=== PATIENT | female | born 1965 | race Caucasian/White ===

== ENCOUNTER 2019-02-13 09:55 | Emergency (ER) | payer OTHER, MEDICAID ==
[~2019-02-13] VITALS: Ht 154.9 cm; Wt 83.9 kg
[2019-02-13 10:10] VITALS: BP 122/61
--- NOTE | 2019-02-13 10:39 | NUR ---
PATIENT AMBULATED TO BED8.
--- NOTE | 2019-02-13 10:44 | NUR ---
BROUGHT IN BY GEOSPATIAL SYSTEMS INTEGRATOR FROM [facility] C/O RIGHT BUTTOCK PAIN S/P MECHANICAL FALL YESTERDAY SHE WAS ATTEMPTING TO GET INTO VAN AND MISSED HER STEP. NO ERYTHEMA, EDEMA, OR DEFORMATY NOTICED. 9/10 PAIN TO PALPATION. ONE 2X2.3CM ERYTHEMOUS LUMP WITH SCAR NOTICED ON PT'S RIGHT KNEE. PT DENIES IT IS DUE TO THE FALL. PATIENT STATES PAIN OF 9/10 AT THIS TIME; VSS; PATIENT POSITIONED FOR COMFORT; HOB ELEVATED; BEDRAILS UP X2; BED DOWN. ER MD MADE AWARE OF PT STATUS.
--- NOTE | 2019-02-13 12:15 | NUR ---
PT IS RESTING IN BED WITH EYES OPENED.
[2019-02-13] MEDS ORDERED: IBUPROFEN 600 MG TAB PO ONE (12:25)
--- NOTE | 2019-02-13 13:53 | NUR ---
PT IS RESTING IN BED WITH EYES OPENED. VSS.
[2019-02-13 14:31] VITALS: BP 115/76
--- NOTE | 2019-02-13 14:31 | NUR ---
Patient discharged with v/s stable. Written and verbal after care instructions given and explained. Patient verbalized understanding. Ambulatory with steady gait. All questions addressed prior to discharge. Advised to follow up with PMD.
== END 2019-02-13 14:31 | disposition home or self-care (01) ==
LOC: MED 09:55
DX: M25.551 Pain in right hip (principal); J45.909 Unspecified asthma, uncomplicated
CPT/HCPCS: 72110; 99283

== ENCOUNTER 2019-02-17 20:26 | Emergency (ER) | payer OTHER, MEDICAID ==
[~2019-02-17] VITALS: Ht 170.2 cm; Wt 72.6 kg
[2019-02-17 20:31] VITALS: BP 122/86
[2019-02-17] MEDS ORDERED: KETOROLAC 30 MG/ML VIAL IM ONE (21:15)
[2019-02-17 22:50] VITALS: BP 122/86
== END 2019-02-17 22:50 | disposition home or self-care (01) ==
LOC: MED 20:26
DX: S76.011A Strain of muscle, fascia and tendon of right hip, initial encounter (principal); M54.5 Low back pain; J45.909 Unspecified asthma, uncomplicated; W01.0XXA Fall on same level from slipping, tripping and stumbling without subsequent striking against object, initial encounter; Y93.89 Activity, other specified; Y92.008 Other place in unspecified non-institutional (private) residence as the place of occurrence of the external cause; Y99.8 Other external cause status
CPT/HCPCS: 73502; 96372; 99283; J1885; Q0092

== ENCOUNTER 2019-02-24 11:12 | Emergency (ER) | payer OTHER, MEDICAID ==
[~2019-02-24] VITALS: Ht 154.9 cm; Wt 83.9 kg
[2019-02-24 11:17] VITALS: BP 116/76
--- NOTE | 2019-02-24 11:47 | NUR ---
NIECY Nowak C/O LOWER BACK PAIN 01/28. PER EMS, PT FELL OUT OF A VAN AND LANDED IN A SITTING POSITION ON 02/20/19, AND WAS EVALUATED AFTER BUT FOUND TO HAVE NO FRACTURE. PT STILL C/O LOWER BACK PAIN SO [facility] SENT HER OVER. VSS. ALERT AND AWAKE. BED IS DOWN, LOCKED, BED RAIL X1, ERMD TO SEE PT. HX: SCHIZOPHRENIA, DEPRESSION, ANXIETY, ARTHRITIS RX: MOTRIN, ZOCOR, SEROQUEL, ZOLOFT
--- NOTE | 2019-02-24 12:30 | NUR ---
RR EVEN AND UNLABORED. PT ALERT AND AWAKE. PAIN 01/28. LAYING IN BED. POSITIONED FOR COMFORT
[2019-02-24] MEDS ORDERED: HYDROcodone/APAP 5/325 MG 1 TAB TAB PO ONE (13:15)
--- NOTE | 2019-02-24 13:15 | NUR ---
AGUSTIN THEODORE AT BEDSIDE
[2019-02-24] MEDS ORDERED: KETOROLAC 60 MG/2 ML VIAL IM ONE (13:30)
--- NOTE | 2019-02-24 14:12 | NUR ---
TRANSPORT TEAM ARRIVAL TEAM [id number]
--- NOTE | 2019-02-24 14:48 | NUR ---
VSS AT THIS TIME. PT ALERT AND IN BED. RR EVEN AND UNLABORED. PT ON 5 L NC
[2019-02-24 15:15] VITALS: BP 138/76
--- NOTE | 2019-02-24 15:15 | NUR ---
Patient discharged with v/s stable. Written and verbal after care instructions given and explained TOPATIENT AND TRANSPORT TEAM. Patient alert, AND verbalized understanding of instructions. WHEELCHAIRED TO VEHICLE WITH TRANSPORT TEAM. All questions addressed prior to discharge. ID band removed. Patient advised to follow up with PMD. Rx of FLEXERIL AND IBUPROFEN given. Patient AND TRANSPORT TEAM educated on indication of medication including possible reaction and side effects. Opportunity to ask questions provided and answered.
== END 2019-02-24 15:15 | disposition home or self-care (01) ==
LOC: MED 11:12
DX: M54.16 Radiculopathy, lumbar region (principal); J45.909 Unspecified asthma, uncomplicated
CPT/HCPCS: 96372; 99283; J1885